=== PATIENT | female | born 1995 | race Caucasian/White ===

== ENCOUNTER 2023-10-28 14:46 | Inpatient (IN) ==
[2023-10-28] MEDS ORDERED: OXYTOCIN 30 UNITS/NSS 30 UNITS/500 ML BAG IV PRN (15:29)
[2023-10-28] MEDS ORDERED: LIDOCAINE 1% LOCAL 20 ML VIAL INFIL PRN (15:29)
[2023-10-28] MEDS: LACTATED RINGER'S 1,000 ML IV PRN (15:30)
[2023-10-28 16:00] LABS: Hematocrit (blood only) 34.7 % (37.0-47.0); Mean Corpuscular Hemoglobin 30.1 pg (25.0-34.0); Mean Corpuscular Hgb Conc 34.6 g/dL (32.0-36.0); Mean Platelet Volume 12.6 fL (9.4-12.4); Platelet Count 200 K/uL (130-400); RDW Standard Deviation 40.8 fL (36.4-46.3); Red Blood Count 3.99 M/uL (4.20-5.40); White Blood Count 13.07 K/ul (4.8-10.8)
[2023-10-28] MEDS ORDERED: BUPIVACAINE 0.25% PF 30 ML VIAL EPI PRN (16:04)
[2023-10-28] MEDS ORDERED: LIDOCAINE 2% MPF LOCAL 5 ML VIAL EPI PRN (16:04)
[2023-10-28] MEDS ORDERED: ROPIVACAINE 0.5% PF 5 MG/ML 20 ML VIAL EPI PRN (16:04)
[2023-10-28] MEDS ORDERED: fentaNYL citrate PF 100 MCG/2 ML VIAL EPI PRN (16:04)
[2023-10-28] MEDS ORDERED: diphenhydrAMINE 50 MG/ML VIAL IV PRN (16:04)
[2023-10-28] MEDS ORDERED: NALBUPHINE HCL 5 MG in SYRINGE 0 ML IV PRN (16:04)
[2023-10-28] MEDS ORDERED: NALOXONE HCL 1 MG in SODIUM CHLORIDE 0.9% 1,000 ML IV PRN (16:04)
[2023-10-28] MEDS ORDERED: ePHEDrine sulfate 50 MG/ML AMP IV PRN (16:04)
[2023-10-28] MEDS ORDERED: SODIUM CHLORIDE 0.9% PF INJ 10 ML VIAL EPI PRN (16:04)
[2023-10-28] MEDS ORDERED: NALOXONE HCL 0.4 MG/1 ML VIAL/CARP IV PRN (16:04)
--- NOTE | 2023-10-28 16:04 | Anesthesiology Consultation ---
Date of Service October 28, 2023 Assessment & Plan (1) Encounter for pre-operative examination: Chart Review Chart Review: Patient NOT seen in Pre Admission Testing and Acceptable Risk for Labor Epidural Consults Requested none History Height/Weight Height: 5 ft 6 in Weight: 73.936 kg Allergies Allergy/AdvReac Type Severity Reaction Status Date / Time No Known Allergies Allergy Verified 10/28/23 14:27 Medications Home Medications Medication Instructions Recorded Confirmed Last Taken doxylamine succinate [Unisom PO 04/01/23 10/28/23 Unknown (doxylamine)] vit with calcium-iron tab PO 04/01/23 10/28/23 Unknown fum-folic acid 27 mg-1 mg tablet pyridoxine (vitamin B6) PO 04/01/23 10/28/23 Unknown Past Family History Family History Other Diabetes Kidney carcinoma Social History Smoking Status: Never smoker Do You Dip or Chew Tobacco: No Hx Alcohol Use: No Hx Substance Use: No Physical Exam Vital Signs Last Vital Signs Temp 97.9 F 10/28/23 14:56 Pulse 93 H 10/28/23 15:15 Resp 20 10/28/23 14:56 BP 133/83 10/28/23 15:15 Testing Laboratory Results 10/28/23 15:44
[2023-10-28] MEDS: BUPIVACAINE 0.25% PF 30 ML VIAL ONE (16:16)
[2023-10-28] MEDS: LIDOCAINE 2%/EPINEPHRINE 1:200,000 20 ML PF ONE (16:16)
[2023-10-28] MEDS: SODIUM CHLORIDE 0.9% PF INJ 10 ML VIAL ONE (16:17)
[2023-10-28] MEDS: fentaNYL citrate PF 100 MCG/2 ML VIAL ONE (16:17)
[2023-10-28] MEDS: ePHEDrine sulfate 50 MG/ML AMP ONE (16:17)
[2023-10-28] MEDS: fentANYL 2 MCG/ML BUPIVacaine 0.125%-NSS 100ML BAG ONE (16:19)
--- NOTE | 2023-10-28 18:31 | History & Physical Report ---
Date of Service October 28, 2023 Assessment & Plan (1) Supervision of normal intrauterine in primigravida: Plan: Admit to L&D. EFm/toco/labs/IV. OK for epidural. Admission and Anticipated Discharge Date Admission Date: October 28, 2023 History of Present Illness Chief Complaint: labor Primary Care Provider: NO PCP 28yo @ 39 4/7, presented to L&D after rupture of membranes in the office for clear fluid. Contractions since this morning. Allergies Allergy/AdvReac Type Severity Reaction Status Date / Time No Known Allergies Allergy Verified 10/28/23 18:34 Home Medications Medication Instructions Recorded Confirmed Type vit with calcium-iron 1 tab PO DAILY 04/01/23 10/28/23 History fum-folic acid 27 mg-1 mg tablet Patient History Family History Other Diabetes Kidney carcinoma Social History (Updated 04/01/23 @ 10:50 by Shy Phillips) Smoking Status: Never smoker Do You Dip or Chew Tobacco: No; Hx Alcohol Use: No Hx Substance Use: No Preferred Language: Croatian Communication Ability: Effective Physiological Chemist Required: No Beliefs That Will Affect Care: None marital status: marital status details: [facility] (24) [phone] Current Living Situation: Spouse Current Living Situation Comment: spouse and brother (26yo) current occupational status: employed 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 After epidural, 7/100/+1 Constitutional: WD/WN, vitals as above Respiratory: normal respiratory effort, lungs clear to auscultation no respiratory distress Cardiovascular: Rate/Rhythm: regular rate and regular rhythm Gastrointestinal (Abdomen): Inspection/Auscultation: abdomen normal to inspection Percussion/Palpation: abdomen soft; abdomen nontender Gravid. No s/s chorio or abruption. Skin: no rashes, warm and dry Psychiatric: A+Ox3, euthymic affect Results & Data Vital Signs (Past 12 Hours) Vital Signs Temp Pulse Resp BP Pulse Ox 10/28/23 18:27 91 H 10/28/23 18:27 124/79 10/28/23 18:26 97 10/28/23 18:26 87 10/28/23 18:25 20 10/28/23 18:25 37.1 C 20 10/28/23 18:21 98 10/28/23 18:21 87 10/28/23 18:16 97 10/28/23 18:16 89 10/28/23 18:13 88 10/28/23 18:13 125/76 10/28/23 18:11 98 10/28/23 18:11 97 H 10/28/23 18:06 97 10/28/23 18:06 87 10/28/23 18:01 20 10/28/23 18:01 20 10/28/23 18:01 97 10/28/23 18:01 90 10/28/23 17:57 88 10/28/23 17:57 113/68 10/28/23 17:56 96 10/28/23 17:56 87 10/28/23 17:51 97 10/28/23 17:51 94 H 10/28/23 17:46 97 10/28/23 17:46 104 H 10/28/23 17:42 93 H 10/28/23 17:42 120/64 10/28/23 17:41 97 10/28/23 17:41 113 H 10/28/23 17:36 98 10/28/23 17:36 94 H 10/28/23 17:31 20 10/28/23 17:31 20 10/28/23 17:31 98 10/28/23 17:31 95 H 10/28/23 17:29 20 10/28/23 17:29 36.9 C 20 10/28/23 17:28 98 H 10/28/23 17:28 132/71 10/28/23 17:26 97 10/28/23 17:26 92 H 10/28/23 17:21 97 10/28/23 17:21 102 H 10/28/23 17:16 97 10/28/23 17:16 85 10/28/23 17:12 101 H 10/28/23 17:12 115/73 10/28/23 17:11 96 07/16/24 17:11 106 H 10/28/23 17:06 97 10/28/23 17:06 91 H 10/28/23 17:01 20 10/28/23 17:01 20 10/28/23 17:01 98 10/28/23 17:01 101 H 10/28/23 16:58 91 H 10/28/23 16:58 128/80 10/28/23 16:56 98 10/28/23 16:56 96 H 10/28/23 16:51 98 10/28/23 16:51 84 10/28/23 16:46 20 10/28/23 16:46 20 10/28/23 16:46 98 10/28/23 16:46 83 10/28/23 16:42 88 10/28/23 16:42 134/81 10/28/23 16:41 99 10/28/23 16:41 85 10/28/23 16:36 98 10/28/23 16:36 87 10/28/23 16:31 20 10/28/23 16:31 20 10/28/23 16:31 98 10/28/23 16:31 85 10/28/23 16:27 86 10/28/23 16:27 139/85 10/28/23 16:26 99 10/28/23 16:26 87 10/28/23 16:25 80 10/28/23 16:25 132/77 10/28/23 16:23 81 10/28/23 16:23 134/77 10/28/23 16:21 98 10/28/23 16:21 78 10/28/23 16:21 86 10/28/23 16:21 142/85 H 10/28/23 16:19 76 10/28/23 16:19 135/83 10/28/23 16:17 83 10/28/23 16:17 140/85 10/28/23 16:16 98 10/28/23 16:16 84 10/28/23 16:11 99 10/28/23 16:11 93 H 10/28/23 16:11 130/83 10/28/23 16:06 100 10/28/23 16:06 96 H 10/28/23 15:15 93 H 10/28/23 15:15 133/83 10/28/23 14:56 36.6 C 20 10/28/23 14:53 104 H 126/90 Coding Level of Care Code None Diagnoses Supervision of normal intrauterine in primigravida Z34.00
[2023-10-28] MEDS: LIDOCAINE 2%/EPINEPHRINE 1:200,000 20 ML PF EPI STA (19:00)
[2023-10-28] MEDS: BUPIVACAINE 0.25% PF 30 ML VIAL EPI STA (19:00)
[2023-10-28] MEDS: fentaNYL citrate PF 100 MCG/2 ML VIAL EPI STA (19:00)
[2023-10-28] MEDS: SODIUM CHLORIDE 0.9% PF INJ 10 ML VIAL EPI STA (19:00)
[2023-10-29] MEDS: fentANYL 2 MCG/ML BUPIVacaine 0.125%-NSS 100ML BAG EPI PRN (00:11)
--- NOTE | 2023-10-29 01:27 | Labor Progress Brief Note ---
Date of Service October 29, 2023 Subjective Complete dilation, actively pushing. 3+ station. Assessment & Plan Admission and Anticipated Discharge Date Admission Date: October 28, 2023 Results & Data Vital Signs (Past 12 Hours) Vital Signs Temp Pulse Resp BP Pulse Ox 10/29/23 01:21 117 H 96 10/29/23 01:20 129 H 94 10/29/23 01:16 90 98 10/29/23 01:14 109 H 125/75 10/29/23 01:11 97 H 99 10/29/23 01:07 111 H 92 10/29/23 01:06 110 H 95 10/29/23 01:01 97 H 98 10/29/23 01:00 108 H 89 L 10/29/23 00:58 95 H 133/78 10/29/23 00:56 109 H 98 10/29/23 00:51 97 H 100 10/29/23 00:46 102 H 100 10/29/23 00:42 101 H 131/73 10/29/23 00:41 96 H 97 10/29/23 00:36 102 H 98 10/29/23 00:31 101 H 98 10/29/23 00:29 100 H 132/67 10/29/23 00:26 105 H 97 10/29/23 00:21 107 H 98 10/29/23 00:16 102 H 99 10/29/23 00:13 98 H 125/77 10/29/23 00:11 98 H 98 10/29/23 00:06 101 H 98 10/29/23 00:01 101 H 98 10/28/23 23:58 90 10/28/23 23:58 127/72 10/28/23 23:56 99 10/28/23 23:56 109 H 10/28/23 23:51 97 10/28/23 23:51 97 H 10/28/23 23:46 98 10/28/23 23:46 98 H 10/28/23 23:43 100 H 10/28/23 23:43 129/67 10/28/23 23:41 98 10/28/23 23:41 99 H 10/28/23 23:36 97 10/28/23 23:36 110 H 10/28/23 23:31 98 10/28/23 23:31 102 H 10/28/23 23:28 111 H 10/28/23 23:28 117/71 10/28/23 23:26 98 10/28/23 23:26 97 H 10/28/23 23:21 98 10/28/23 23:21 101 H 10/28/23 23:16 97 10/28/23 23:16 90 10/28/23 23:12 92 H 10/28/23 23:12 111/66 10/28/23 23:11 97 10/28/23 23:11 98 H 10/28/23 23:07 18 10/28/23 23:07 37.5 C 18 10/28/23 23:06 97 10/28/23 23:06 107 H 10/28/23 23:01 97 10/28/23 23:01 94 H 10/28/23 22:58 95 H 10/28/23 22:58 111/64 10/28/23 22:56 97 10/28/23 22:56 92 H 10/28/23 22:51 97 10/28/23 22:51 107 H 10/28/23 22:46 97 10/28/23 22:46 99 H 10/28/23 22:42 87 10/28/23 22:42 113/64 10/28/23 22:41 97 10/28/23 22:41 95 H 10/28/23 22:36 98 10/28/23 22:36 99 H 10/28/23 22:31 97 10/28/23 22:31 97 H 10/28/23 22:28 99 H 10/28/23 22:28 124/65 10/28/23 22:27 100 H 10/28/23 22:27 117/65 10/28/23 22:26 97 10/28/23 22:26 99 H 10/28/23 22:21 98 10/28/23 22:21 107 H 10/28/23 22:16 97 10/28/23 22:16 90 10/28/23 22:12 102 H 10/28/23 22:12 126/63 10/28/23 22:11 98 10/28/23 22:11 92 H 10/28/23 22:06 98 10/28/23 22:06 108 H 10/28/23 22:01 98 10/28/23 22:01 104 H 10/28/23 21:58 106 H 10/28/23 21:58 132/74 10/28/23 21:56 98 10/28/23 21:56 105 H 10/28/23 21:51 98 10/28/23 21:51 96 H 10/28/23 21:46 98 10/28/23 21:46 95 H 10/28/23 21:43 97 H 10/28/23 21:43 120/72 10/28/23 21:41 99 10/28/23 21:41 93 H 10/28/23 21:36 97 10/28/23 21:36 103 H 10/28/23 21:31 98 10/28/23 21:31 97 H 10/28/23 21:27 96 H 10/28/23 21:27 130/84 10/28/23 21:26 99 10/28/23 21:26 99 H 10/28/23 21:21 98 10/28/23 21:21 97 H 10/28/23 21:16 98 10/28/23 21:16 95 H 10/28/23 21:14 96 H 10/28/23 21:14 125/79 10/28/23 21:14 37.4 C 10/28/23 21:12 18 10/28/23 21:12 18 10/28/23 21:11 96 10/28/23 21:11 100 H 10/28/23 21:06 98 10/28/23 21:06 111 H 10/28/23 21:01 97 10/28/23 21:01 102 H 10/28/23 20:59 104 H 10/28/23 20:59 125/72 10/28/23 20:56 98 10/28/23 20:56 120 H 10/28/23 20:51 97 10/28/23 20:51 103 H 10/28/23 20:46 97 10/28/23 20:46 106 H 10/28/23 20:44 108 H 10/28/23 20:44 110/68 10/28/23 20:41 97 10/28/23 20:41 107 H 10/28/23 20:36 97 10/28/23 20:36 124 H 10/28/23 20:31 98 10/28/23 20:31 102 H 10/28/23 20:28 105 H 10/28/23 20:28 124/78 10/28/23 20:26 97 10/28/23 20:26 121 H 10/28/23 20:21 98 10/28/23 20:21 96 H 10/28/23 20:16 98 10/28/23 20:16 103 H 10/28/23 20:13 116 H 10/28/23 20:13 116/70 10/28/23 20:11 98 10/28/23 20:11 107 H 10/28/23 20:06 97 10/28/23 20:06 103 H 10/28/23 20:01 98 10/28/23 20:01 106 H 10/28/23 19:57 105 H 10/28/23 19:57 118/76 10/28/23 19:56 97 10/28/23 19:56 94 H 10/28/23 19:51 97 10/28/23 19:51 96 H 10/28/23 19:46 97 10/28/23 19:46 98 H 10/28/23 19:42 91 H 10/28/23 19:42 118/66 10/28/23 19:41 96 10/28/23 19:41 98 H 10/28/23 19:36 97 10/28/23 19:36 98 H 10/28/23 19:31 97 10/28/23 19:31 94 H 10/28/23 19:27 96 H 10/28/23 19:27 126/64 10/28/23 19:26 98 10/28/23 19:26 94 H 10/28/23 19:21 97 10/28/23 19:21 98 H 10/28/23 19:16 97 10/28/23 19:16 95 H 10/28/23 19:13 92 H 10/28/23 19:13 131/66 10/28/23 19:11 97 10/28/23 19:11 99 H 10/28/23 19:06 97 10/28/23 19:06 92 H 10/28/23 19:05 18 10/28/23 19:05 37.3 C 18 10/28/23 19:01 20 10/28/23 19:01 20 10/28/23 19:01 98 10/28/23 19:01 94 H 10/28/23 18:58 96 H 10/28/23 18:58 132/83 10/28/23 18:56 98 10/28/23 18:56 90 10/28/23 18:51 98 10/28/23 18:51 87 10/28/23 18:46 98 10/28/23 18:46 89 10/28/23 18:44 87 10/28/23 18:44 130/67 10/28/23 18:41 98 10/28/23 18:41 86 10/28/23 18:36 97 10/28/23 18:36 95 H 10/28/23 18:31 20 10/28/23 18:31 20 10/28/23 18:31 97 10/28/23 18:31 86 10/28/23 18:27 91 H 10/28/23 18:27 124/79 10/28/23 18:26 97 10/28/23 18:26 87 10/28/23 18:25 20 10/28/23 18:25 37.1 C 20 10/28/23 18:21 98 10/28/23 18:21 87 10/28/23 18:16 97 10/28/23 18:16 89 10/28/23 18:13 88 10/28/23 18:13 125/76 10/28/23 18:11 98 10/28/23 18:11 97 H 10/28/23 18:06 97 10/28/23 18:06 87 10/28/23 18:01 20 10/28/23 18:01 20 10/28/23 18:01 97 10/28/23 18:01 90 10/28/23 17:57 88 10/28/23 17:57 113/68 10/28/23 17:56 96 10/28/23 17:56 87 10/28/23 17:51 97 10/28/23 17:51 94 H 10/28/23 17:46 97 10/28/23 17:46 104 H 10/28/23 17:42 93 H 10/28/23 17:42 120/64 10/28/23 17:41 97 10/28/23 17:41 113 H 10/28/23 17:36 98 10/28/23 17:36 94 H 10/28/23 17:31 20 10/28/23 17:31 20 10/28/23 17:31 98 10/28/23 17:31 95 H 10/28/23 17:29 20 10/28/23 17:29 36.9 C 20 10/28/23 17:28 98 H 10/28/23 17:28 132/71 10/28/23 17:26 97 10/28/23 17:26 92 H 10/28/23 17:21 97 10/28/23 17:21 102 H 10/28/23 17:16 97 10/28/23 17:16 85 10/28/23 17:12 101 H 10/28/23 17:12 115/73 10/28/23 17:11 96 10/28/23 17:11 106 H 10/28/23 17:06 97 10/28/23 17:06 91 H 10/28/23 17:01 20 10/28/23 17:01 20 10/28/23 17:01 98 10/28/23 17:01 101 H 10/28/23 16:58 91 H 10/28/23 16:58 128/80 10/28/23 16:56 98 10/28/23 16:56 96 H 10/28/23 16:51 98 10/28/23 16:51 84 10/28/23 16:46 20 10/28/23 16:46 20 10/28/23 16:46 98 10/28/23 16:46 83 10/28/23 16:42 88 10/28/23 16:42 134/81 10/28/23 16:41 99 10/28/23 16:41 85 10/28/23 16:36 98 10/28/23 16:36 87 10/28/23 16:31 20 10/28/23 16:31 20 10/28/23 16:31 98 10/28/23 16:31 85 10/28/23 16:27 86 10/28/23 16:27 139/85 10/28/23 16:26 99 10/28/23 16:26 87 10/28/23 16:25 80 10/28/23 16:25 132/77 10/28/23 16:23 81 10/28/23 16:23 134/77 10/28/23 16:21 98 10/28/23 16:21 78 10/28/23 16:21 86 10/28/23 16:21 142/85 H 10/28/23 16:19 76 10/28/23 16:19 135/83 10/28/23 16:17 83 10/28/23 16:17 140/85 10/28/23 16:16 98 10/28/23 16:16 84 10/28/23 16:11 99 10/28/23 16:11 93 H 10/28/23 16:11 130/83 10/28/23 16:06 100 10/28/23 16:06 96 H 10/28/23 15:15 93 H 10/28/23 15:15 133/83 10/28/23 14:56 36.6 C 20 10/28/23 14:53 104 H 126/90 Coding Level of Care Code None
[2023-10-29] MEDS: OXYTOCIN 30 UNITS/NSS 30 UNITS/500 ML BAG IV PRN (02:18)
--- NOTE | 2023-10-29 03:11 | Delivery Summary ---
Vaginal Delivery Summary Date of Service October 29, 2023 Vaginal Delivery Summary and 2nd Degree LAC Vaginal Delivery Summary: Pre-delivery diagnoses: 28yo @ 39 5/7, spontaneous labor Post-delivery diagnoses: same Procedure: spontaneous vaginal delivery Surgeon: Lucero French DO Complications: none Findings: Viable female . Apgars: 8/9. Weight pending, please see nursery records Estimated QBL: 75cc Description of delivery: The patient progressed to complete with epidural anesthesia. She then began to push. She spontaneously vaginally delivered a viable from the cephalic presentation. The head delivered in TAMARA position with compound hand. The anterior shoulder delivered, followed by the posterior shoulder, followed by the body. Nuchal tight - delivered through. The baby was placed on mother's abdomen and a spontaneous cry was heard. Delayed cord clamping was employed, and the cord was doubly clamped and cut. Cord blood was obtained. The placenta was delivered spontaneously intact with a 3-vessel cord. The uterus and vagina were swept of clots and debris. IV pitocin was given. The uterus became firm. The cervix, vagina, and perineum were inspected and 2nd degree perineal laceration noted and repaired with 3-0 Vicryl. Excellent hemostasis was observed. The mother and baby are recovering in stable and good condition in the room. Sponge, needle and instrument counts were correct x 2. [facility] Delivery Charge Vaginal Delivery Codes: 37111 global code for the antepartum, delivery, and post- Delivery Type Details: and 2nd Degree LAC
[2023-10-29] MEDS ORDERED: ACETAMINOPHEN 325 MG TAB PO PRN (03:42)
[2023-10-29] MEDS ORDERED: OXYTOCIN 30 UNITS/NSS 30 UNITS/500 ML BAG IV PRN (03:42)
[2023-10-29] MEDS ORDERED: HYDROCORTISONE ACETATE 25 MG SUPP PR PRN (03:42)
[2023-10-29] MEDS ORDERED: oxyCODONE/ACETAMINOPHEN 5mg/325mg TAB PO PRN (03:42)
[2023-10-29] MEDS: DIPHTHER/TETAN/PERTUS Vaccine (Tdap, Adol/Adult) 0.5mL IM ONE (07:22)
[2023-10-29] MEDS: BENZOCAINE 20% SPRY 85 APPLN/85 GM CAN EXT PRN (07:29)
--- NOTE | 2023-10-29 07:45 | Anesthesia Procedure Note ---
Date of Service October 29, 2023 Anesthesia Post Epidural Note Vital Signs Vital Signs: Temp Pulse Resp BP Pulse Ox O2 Del Method 37.3 C 88 18 118/68 98 Room Air 10/29/23 05:15 10/29/23 05:15 10/29/23 05:10/29/23 04:44 10/29/23 05:10/29/23 05:15 Pain Intensity Bilateral Abdomen: Pain Intensity: 5 Notes Mental Status: alert / awake / arousable and participated in evaluation Nausea / Vomiting: adequately controlled Pain: adequately controlled Airway Patency, RR, SpO2: stable & adequate BP & HR: stable & adequate Hydration State: stable & adequate Neuraxial Anesthesia: was administered and sensory block is resolving Anesthetic Complications: no major complications apparent Epidural: Removed without complications and With tip intact
[2023-10-29] MEDS: IBUPROFEN 600 MG TAB PO PRN (07:51)
[2023-10-29] MEDS: DOCUSATE SODIUM 100 MG CAP PO SCH (07:52)
[2023-10-29] MEDS: PRENATAL VITAMIN 1 TAB PO SCH (07:52)
--- NOTE | 2023-10-30 06:15 | Obstetrical Progress Note ---
Date of Service <Bayron Watson DO - Last Filed: 10/30/23 07:18> October 30, 2023 Assessment & Plan <Bayron Watson DO - Last Filed: 10/30/23 07:18> (1) Encounter for assessment: Patient is PPD 1 s/p and doing well - Eating well, voiding well, ambulating well - vitals reviewed and within normal limits - pain well controlled with analgesics - OOB, ambulation, diet progression as tolerated - Blood type: O+, GBS neg, rubella immune - Plan to discharge today - After discharge, 6 week follow up with OB visit type: exam and care immediately after delivery Qualified Code(s): Z39.0 - Encounter for care and examination of mother immediately after delivery <Poncho Strickland MD - Last Filed: 10/30/23 07:21> (1) Encounter for assessment: Subjective <Bayron Watson DO - Last Filed: 10/30/23 07:18> 28 yo post- day 1 s/p Ambulation: ambulating normally Voiding: no voiding problems Passing Gas:: Yes Diet Tolerance:: regular diet Lochia:: Small Feeding Type:: bottle feeding Current Pain Level: 5-6/10 during cramps Resting comfortably this AM in NAD. Denies HUNTER, CP, SOB, N/V/D, LE pain/swelling. Physical Exam <Bayron Watson DO - Last Filed: 10/30/23 07:18> General: patient resting comfortably, NAD, non-toxic in appearance, answers questions appropriately. Skin: warm, dry, intact HEENT: NC/AT, anicteric sclera, conjunctiva without injection, moist mucus membranes. Heart: +S1/S2, regular, no m/r/g Lungs: equal air entry bilaterally, no rales/rhonchi/wheezes Abd: +BS, soft, NT/ND, uterine fundus firm at umbilicus Ext: warm, no clubbing/cyanosis or edema, Jalen's neg. Neuro: nonfocal, speech intact, no facial droop, moving all extremities. Results & Data <Bayron Watson DO - Last Filed: 10/30/23 07:18> Vital Signs (Past 12 Hours) Vital Signs Temp Pulse Resp BP Pulse Ox O2 Del Method 10/30/23 00:10 36.9 C 85 18 133/82 98 Room Air 10/29/23 20:00 36.7 C 85 18 116/76 98 Room Air Supervising Physician <Poncho Strickland MD - Last Filed: 10/30/23 07:21> Co-Signing Physician Notes Patient seen with resident and agree with the above findings and plan. Requesting discharge and is stable for discharge at his requested Resident Activity Tracking <Bayron Watson DO - Last Filed: 10/30/23 07:18> Resident Involvement: Resident Care Provided Care Provided: OB Delivery
[2023-10-30 06:34] LABS: Hematocrit (blood only) 30.8 % (37.0-47.0); Hemoglobin 10.6 g/dl (12.0-16.0)
[2023-10-30] MEDS ORDERED: bisacodyL 5 MG TABEC PO SCH (20:00)
[2023-10-31] MEDS ORDERED: bisacodyL 10 MG SUPP PR PRN (03:42)
== END 2023-10-30 11:55 | disposition home or self-care (01) | DRG 807 ==
LOC: OPB 14:46 → 4S1 14:48 → 4E2 10-29 05:06
DX: O42.02 Full-term premature rupture of membranes, onset of labor within 24 hours of rupture; Z3A.39 39 weeks gestation of pregnancy; O70.1 Second degree perineal laceration during delivery; O69.81X0 Labor and delivery complicated by cord around neck, without compression, not applicable or unspecified; Z37.0 Single live birth